=== PATIENT | female | born 1980 ===

== ENCOUNTER 2016-06-07 07:12 | Inpatient (IN) | payer SELFPAY ==
[~2016-06-07] VITALS: Ht 162.6 cm; Wt 68.0 kg
[2016-06-07 09:28] LABS: Urine Bilirubin Negative (Negative); Urine Blood Negative /uL (Negative); Urine Color Yellow (Yellow); Urine Glucose Normal (Normal); Urine Ketone Negative (Negative); Urine Nitrite Negative (Negative); Urine RBC 12 /hpf (0 - 4); Urine Squamous Epithelial Cell MANY /hpf (<5); Urine WBC Clumps PRESENT /hpf (None Seen); Urine pH 6.5 (5.0-8.0)
[2016-06-07 10:34] LABS: Basophils # (auto) 0.2 uL; Basophils % (auto) 2.7 % (0.0-2.0); Eosinophils # (auto) 0.1 uL; Eosinophils % (auto) 1.4 % (0.0-7.0); Hematocrit 41.4 % (36.0-46.0); Hemoglobin 14.4 g/dL (12.2-16.2); Lymphocytes # (auto) 1.7 uL; Mean Corpuscular Hemoglobin 34.5 pg (28.0-32.0); Mean Corpuscular Hgb Conc. 34.9 g/dL (32.0-36.0); Mean Corpuscular Volume 98.8 fL (80.0-100.0); Mean Platelet Volume 7.8 fL (7.4-10.4); Monocytes # (auto) 0.3 uL; Monocytes % (auto) 4.7 % (0.0-12.0); Neutrophils # (auto) 4.7 uL; Neutrophils % (auto) 67.2 % (37.0-80.0); Platelet Count (auto) 309 10^3/uL (140-450); Red Cell Distribution Width 14.1 % (11.6-16.0); White Blood Cell 6.9 10^3/uL (4.4-10.8)
[2016-06-07 10:37] LABS: Albumin 4.1 g/dL (3.4-5.0); BUN/Creatinine Ratio 24.4; Bilirubin, Total 1.3 mg/dL (0.2-1.0); Calcium 9.2 mg/dL (8.5-10.1); Total Protein 8.5 g/dL (6.4-8.2)
[2016-06-07 10:43] LABS: Potassium 2.5 mmol/L (3.5-5.1)
[2016-06-07] MEDS ORDERED: SODIUM CHLORIDE 0.9% 1,000 ML IV ONE (10:49)
[2016-06-07] MEDS ORDERED: D5W/SOD CHL 0.45%/KCL 40MEQ 1,000 ML IV ONE (11:00)
[2016-06-07] MEDS ORDERED: ONDANSETRON HCL 4 MG/2 ML VIAL IV ONE (11:00)
[2016-06-07] MEDS ORDERED: MORPHINE SULF INJ 2 MG/ML SYRINGE 1ML IV ONE (11:00)
[2016-06-07] MEDS ORDERED: cefTRIAXone 1GM/50ML D5W 50 ML IV ONE (12:00)
[2016-06-07 12:02] LABS: INR 1.03 (0.9-1.15); Prothrombin Time 11.1 sec (9.37-12.3)
[2016-06-07] MEDS ORDERED: POTASSIUM CHL 20 Meq TABLET PO ONE ×2 (12:15→19:45)
[2016-06-07] MEDS ORDERED: MORPHINE SULF INJ 2 MG/ML SYRINGE 1ML IV PRN (14:15)
[2016-06-07] MEDS ORDERED: NITROGLYCERIN 0.4 MG SL TAB SL PRN (14:15)
[2016-06-07] MEDS ORDERED: LORazepam 2MG/ML-1ML VIAL IV PRN (14:15)
[2016-06-07] MEDS ORDERED: ONDANSETRON HCL 4 MG/2 ML VIAL IV PRN (14:15)
[2016-06-07] MEDS ORDERED: ACETAMINOPHEN 325 MG TAB PO PRN (14:15)
[2016-06-07] MEDS: MULTIPLE VITAMIN TAB PO SCH (14:55)
[2016-06-07] MEDS: FAMOTIDINE 20 MG TAB PO SCH ×2 (14:55→22:30)
[2016-06-07 17:30] VITALS: BP 96/57
[2016-06-07] MEDS: MORPHINE SULF INJ 2 MG/ML SYRINGE 1ML IV PRN (18:03)
[2016-06-07 19:13] LABS: BUN/Creatinine Ratio 22.4; Calcium 8.5 mg/dL (8.5-10.1)
[2016-06-07 19:20] LABS: Potassium 2.6 mmol/L (3.5-5.1)
[2016-06-07 22:00] VITALS: BP 103/49
[2016-06-07] MEDS: SODIUM CHLOR 0.9% PF (SALINE LOCK) 10ML VIAL IV SCH (22:30)
[2016-06-08 01:03] LABS: BUN/Creatinine Ratio 20.2; Calcium 8.4 mg/dL (8.5-10.1)
[2016-06-08 01:06] LABS: Potassium 2.8 mmol/L (3.5-5.1)
[2016-06-08] MEDS ORDERED: POTASSIUM CHL 20 Meq TABLET PO ONE ×2 (01:15→12:00)
[2016-06-08 05:00] VITALS: BP 118/75
[2016-06-08] MEDS: SODIUM CHLOR 0.9% PF (SALINE LOCK) 10ML VIAL IV SCH ×3 (05:33→22:42)
[2016-06-08 06:17] LABS: Basophils # (auto) 0 uL; Basophils % (auto) 0.7 % (0.0-2.0); Eosinophils # (auto) 0.1 uL; Eosinophils % (auto) 2.7 % (0.0-7.0); Hematocrit 38.7 % (36.0-46.0); Hemoglobin 13.3 g/dL (12.2-16.2); Lymphocytes # (auto) 1.4 uL; Lymphocytes % (auto) 34.4 % (10.0-50.0); Mean Corpuscular Hemoglobin 34.6 pg (28.0-32.0); Mean Corpuscular Hgb Conc. 34.3 g/dL (32.0-36.0); Mean Platelet Volume 7.8 fL (7.4-10.4); Monocytes # (auto) 0.3 uL; Monocytes % (auto) 6.9 % (0.0-12.0); Neutrophils # (auto) 2.3 uL; Neutrophils % (auto) 55.3 % (37.0-80.0); Platelet Count (auto) 318 10^3/uL (140-450); Red Cell Distribution Width 14.6 % (11.6-16.0); White Blood Cell 4.2 10^3/uL (4.4-10.8)
[2016-06-08 06:44] LABS: Albumin 3.2 g/dL (3.4-5.0); BUN/Creatinine Ratio 19.5; Bilirubin, Total 0.7 mg/dL (0.2-1.0); Calcium 8.4 mg/dL (8.5-10.1); Potassium 3.1 mmol/L (3.5-5.1)
[2016-06-08 08:00] VITALS: BP 100/62
[2016-06-08 09:00] VITALS: BP 109/61
[2016-06-08] MEDS: MORPHINE SULF INJ 2 MG/ML SYRINGE 1ML IV PRN ×2 (09:47→14:42)
[2016-06-08] MEDS: DOCUSATE SOD 100 MG CAP PO PRN ×2 (09:47→22:42)
[2016-06-08] MEDS: FAMOTIDINE 20 MG TAB PO SCH ×2 (09:47→22:42)
[2016-06-08] MEDS: MULTIPLE VITAMIN TAB PO SCH (09:47)
[2016-06-08] MEDS: BOOST PLUS 8 ounce PO SCH ×2 (12:00→18:18)
[2016-06-08] MEDS: NYSTATIN (MOUTH-THROAT) 500,000 UNITS/5 ML SUSP MT SCH ×3 (12:49→22:41)
[2016-06-08] MEDS: LORazepam 0.5 MG TAB PO PRN ×2 (12:56→18:54)
[2016-06-08 13:00] VITALS: BP 104/62
[2016-06-08] MEDS ORDERED: cefTRIAXone 1GM/50ML D5W 50 ML IV ONE (14:00)
[2016-06-08 17:00] VITALS: BP 96/56
[2016-06-08 21:30] VITALS: BP 102/58
[2016-06-08] MEDS: TEMAZEPAM 15 MG CAP PO PRN (22:41)
[2016-06-09] VITALS (7 sets, daily range): BP systolic 88–110; BP diastolic 57–73
[2016-06-09] MEDS: NYSTATIN (MOUTH-THROAT) 500,000 UNITS/5 ML SUSP MT SCH ×4 (06:06→22:00)
[2016-06-09] MEDS: SODIUM CHLOR 0.9% PF (SALINE LOCK) 10ML VIAL IV SCH ×3 (06:06→22:27)
[2016-06-09 06:27] LABS: Basophils # (auto) 0 uL; Basophils % (auto) 0.7 % (0.0-2.0); Eosinophils # (auto) 0.1 uL; Eosinophils % (auto) 2.6 % (0.0-7.0); Hematocrit 40.1 % (36.0-46.0); Hemoglobin 13.7 g/dL (12.2-16.2); Lymphocytes # (auto) 1.7 uL; Lymphocytes % (auto) 39.2 % (10.0-50.0); Mean Corpuscular Hemoglobin 34.4 pg (28.0-32.0); Mean Corpuscular Hgb Conc. 34.2 g/dL (32.0-36.0); Mean Corpuscular Volume 100.8 fL (80.0-100.0); Mean Platelet Volume 7.2 fL (7.4-10.4); Monocytes # (auto) 0.4 uL; Monocytes % (auto) 8.4 % (0.0-12.0); Neutrophils # (auto) 2.2 uL; Neutrophils % (auto) 49.1 % (37.0-80.0); Platelet Count (auto) 309 10^3/uL (140-450); Red Cell Distribution Width 14.6 % (11.6-16.0); White Blood Cell 4.5 10^3/uL (4.4-10.8)
[2016-06-09 06:50] LABS: Albumin 3.4 g/dL (3.4-5.0); Calcium 8.7 mg/dL (8.5-10.1); Potassium 3.2 mmol/L (3.5-5.1)
[2016-06-09 06:53] LABS: BUN/Creatinine Ratio 16.9
[2016-06-09 06:55] LABS: Bilirubin, Total 0.5 mg/dL (0.2-1.0); Total Protein 7.3 g/dL (6.4-8.2)
[2016-06-09] MEDS: BOOST PLUS 8 ounce PO SCH ×3 (08:00→18:00)
[2016-06-09] MEDS ORDERED: POTASSIUM CHLORIDE 8 MEQ TAB PO ONE (09:15)
[2016-06-09] MEDS: cefTRIAXone 1GM/50ML D5W 50 ML IV SCH (09:24)
[2016-06-09] MEDS: FAMOTIDINE 20 MG TAB PO SCH ×2 (09:25→22:00)
[2016-06-09] MEDS: POTASSIUM CHL 20 Meq TABLET PO SCH (09:31)
[2016-06-09] MEDS: MULTIPLE VITAMIN TAB PO SCH (09:32)
[2016-06-09] MEDS: DOCUSATE SOD 100 MG CAP PO PRN (09:32)
[2016-06-09] MEDS: LORazepam 0.5 MG TAB PO PRN (18:27)
[2016-06-10] MEDS: LORazepam 0.5 MG TAB PO PRN (01:07)
[2016-06-10 05:35] VITALS: BP 104/64
[2016-06-10] MEDS: SODIUM CHLOR 0.9% PF (SALINE LOCK) 10ML VIAL IV SCH ×3 (06:00→22:35)
[2016-06-10] MEDS: NYSTATIN (MOUTH-THROAT) 500,000 UNITS/5 ML SUSP MT SCH ×4 (06:00→22:35)
[2016-06-10 07:05] LABS: Basophils # (auto) 0 uL; Basophils % (auto) 0.6 % (0.0-2.0); Eosinophils # (auto) 0.2 uL; Eosinophils % (auto) 3.6 % (0.0-7.0); Hemoglobin 14.5 g/dL (12.2-16.2); Lymphocytes # (auto) 1.9 uL; Lymphocytes % (auto) 43.4 % (10.0-50.0); Mean Corpuscular Hemoglobin 34.8 pg (28.0-32.0); Mean Corpuscular Hgb Conc. 34.5 g/dL (32.0-36.0); Mean Corpuscular Volume 100.7 fL (80.0-100.0); Mean Platelet Volume 7.3 fL (7.4-10.4); Monocytes # (auto) 0.3 uL; Monocytes % (auto) 5.9 % (0.0-12.0); Neutrophils # (auto) 2.1 uL; Neutrophils % (auto) 46.5 % (37.0-80.0); Platelet Count (auto) 330 10^3/uL (140-450); Red Cell Distribution Width 14.6 % (11.6-16.0); White Blood Cell 4.4 10^3/uL (4.4-10.8)
[2016-06-10 07:35] LABS: Albumin 3.5 g/dL (3.4-5.0); BUN/Creatinine Ratio 18.8; Bilirubin, Total 0.5 mg/dL (0.2-1.0); Calcium 8.9 mg/dL (8.5-10.1); Potassium 3.3 mmol/L (3.5-5.1); Total Protein 7.8 g/dL (6.4-8.2)
[2016-06-10] MEDS: MORPHINE SULF INJ 2 MG/ML SYRINGE 1ML IV PRN ×2 (07:51→17:44)
[2016-06-10 08:00] VITALS: BP 109/69
[2016-06-10] MEDS: BOOST PLUS 8 ounce PO SCH ×3 (08:00→17:44)
[2016-06-10 09:00] VITALS: BP 109/69
[2016-06-10] MEDS: cefTRIAXone 1GM/50ML D5W 50 ML IV SCH (10:21)
[2016-06-10] MEDS: POTASSIUM CHL 20 Meq TABLET PO SCH (10:22)
[2016-06-10] MEDS: FAMOTIDINE 20 MG TAB PO SCH ×2 (10:22→22:35)
[2016-06-10] MEDS: MULTIPLE VITAMIN TAB PO SCH (10:22)
[2016-06-10 13:00] VITALS: BP 87/51
[2016-06-10 17:00] VITALS: BP 110/69
[2016-06-10] MEDS ORDERED: ALBUTEROL SULF 2.5 MG/0.5ML(0.5%) NEB SOLN NEB ONE (19:15)
[2016-06-10 20:00] VITALS: BP 106/55
[2016-06-10 21:02] LABS: Albumin 3.5 g/dL (3.4-5.0); Bilirubin, Direct 0.2 mg/dL (0-0.2); Bilirubin, Total 0.6 mg/dL (0.2-1.0); Total Protein 7.7 g/dL (6.4-8.2)
[2016-06-10] MEDS: TEMAZEPAM 15 MG CAP PO PRN (22:36)
[2016-06-11 05:00] VITALS: BP 105/62
[2016-06-11] MEDS: SODIUM CHLOR 0.9% PF (SALINE LOCK) 10ML VIAL IV SCH ×3 (06:00→21:31)
[2016-06-11] MEDS: NYSTATIN (MOUTH-THROAT) 500,000 UNITS/5 ML SUSP MT SCH ×4 (06:39→21:31)
[2016-06-11 08:00] VITALS: BP 106/69
[2016-06-11] MEDS: BOOST PLUS 8 ounce PO SCH ×3 (08:00→17:40)
[2016-06-11 09:02] VITALS: BP 106/69
[2016-06-11] MEDS: MORPHINE SULF INJ 2 MG/ML SYRINGE 1ML IV PRN ×3 (10:15→18:25)
[2016-06-11] MEDS: MULTIPLE VITAMIN TAB PO SCH (10:15)
[2016-06-11] MEDS: cefTRIAXone 1GM/50ML D5W 50 ML IV SCH (10:15)
[2016-06-11] MEDS: FAMOTIDINE 20 MG TAB PO SCH ×2 (10:15→21:32)
[2016-06-11] MEDS: POTASSIUM CHL 20 Meq TABLET PO SCH (10:15)
[2016-06-11 14:06] LABS: INR 1.08 (0.9-1.15); Partial Thromboplastin Time 29.8 sec (22.64-33.71); Prothrombin Time 11.7 sec (9.37-12.3)
[2016-06-11] MEDS ORDERED: POTASSIUM CHLORIDE 40 MEQ, LIDOCAINE 1% (LOCAL ANESTH.) 4 ML in SODIUM CHL 0.9% 250 ML IV ONE (15:00)
[2016-06-11 16:49] VITALS: BP 103/66
[2016-06-11 19:30] VITALS: BP 98/69
[2016-06-11] MEDS: LORazepam 0.5 MG TAB PO PRN (21:31)
[2016-06-11 22:00] VITALS: BP 95/59
[2016-06-12] MEDS: SODIUM CHLOR 0.9% PF (SALINE LOCK) 10ML VIAL IV SCH ×3 (04:37→22:01)
[2016-06-12 05:00] VITALS: BP 93/65
[2016-06-12] MEDS: NYSTATIN (MOUTH-THROAT) 500,000 UNITS/5 ML SUSP MT SCH ×4 (05:03→22:01)
[2016-06-12 06:48] LABS: Basophils # (auto) 0 uL; Eosinophils # (auto) 0.1 uL; Eosinophils % (auto) 2.6 % (0.0-7.0); Hematocrit 38.5 % (36.0-46.0); Hemoglobin 13.3 g/dL (12.2-16.2); Lymphocytes # (auto) 1.5 uL; Lymphocytes % (auto) 36.3 % (10.0-50.0); Mean Corpuscular Hemoglobin 34.6 pg (28.0-32.0); Mean Corpuscular Hgb Conc. 34.6 g/dL (32.0-36.0); Mean Platelet Volume 6.6 fL (7.4-10.4); Monocytes # (auto) 0.3 uL; Monocytes % (auto) 7.4 % (0.0-12.0); Neutrophils # (auto) 2.3 uL; Neutrophils % (auto) 52.7 % (37.0-80.0); Platelet Count (auto) 355 10^3/uL (140-450); Red Cell Distribution Width 14.1 % (11.6-16.0); White Blood Cell 4.3 10^3/uL (4.4-10.8)
[2016-06-12 07:08] LABS: BUN/Creatinine Ratio 21.3; Calcium 8.9 mg/dL (8.5-10.1); Potassium 3.4 mmol/L (3.5-5.1)
[2016-06-12 08:00] VITALS: BP 118/63
[2016-06-12] MEDS: BOOST PLUS 8 ounce PO SCH ×3 (08:00→18:00)
[2016-06-12] MEDS ORDERED: ceFAZolin 1GM/50ML D5W 50 ML IV ONE ×2 (08:39→09:45)
[2016-06-12 08:49] LABS: Albumin 3.5 g/dL (3.4-5.0); Bilirubin, Direct 0.1 mg/dL (0-0.2); Bilirubin, Total 0.3 mg/dL (0.2-1.0); Total Protein 7.5 g/dL (6.4-8.2)
[2016-06-12] MEDS ORDERED: LIDOCAINE W/ EPINEPHRINE 1 % INJ 30ML ONE (08:50)
[2016-06-12] MEDS ORDERED: ceFAZolin 1GM VL ONE (08:50)
[2016-06-12] MEDS ORDERED: METHYLERGONOVINE MALEATE 0.2 MG/ML AMP IM ONE (08:51)
[2016-06-12] MEDS ORDERED: BUPIVACAINE 0.25% INJ 50ML VIAL ONE (08:51)
[2016-06-12] MEDS ORDERED: LIDOCAINE HCL (LOCAL ANESTH.) 0.5 % 50ML MDV IJ ONE (08:51)
[2016-06-12] MEDS ORDERED: VASOPRESSIN 20 UNIT/ML ONE (08:51)
[2016-06-12] MEDS ORDERED: MIDAZOLAM HCL 1MG/1ML-2 ML VIAL ONE (09:00)
[2016-06-12] MEDS: cefTRIAXone 1GM/50ML D5W 50 ML IV SCH (09:00)
[2016-06-12] MEDS ORDERED: fentaNYL CITRATE 100 MCG/2 ML VL ONE (09:00)
[2016-06-12] MEDS ORDERED: MEPERIDINE HCL (50 MG/ML) 1 ML VIAL ONE (09:01)
[2016-06-12] MEDS ORDERED: ETOMIDATE (2MG/ML) 20ML VIAL IV ONE ×2 (09:01→09:05)
[2016-06-12] MEDS ORDERED: DEXAMETHASONE SOD PHOS 10MG/1ML VIAL INJ ONE (09:01)
[2016-06-12] MEDS ORDERED: PROPOFOL 10 MG/ML 20 ML IV ONE (09:01)
[2016-06-12] MEDS ORDERED: ACETAMINOPHEN 500 MG TAB PO PRN (09:45)
[2016-06-12] MEDS: SODIUM CHLORIDE 0.9% 1,000 ML IV SCH (09:45)
[2016-06-12] MEDS: MULTIPLE VITAMIN TAB PO SCH (10:00)
[2016-06-12] MEDS: FAMOTIDINE 20 MG TAB PO SCH ×2 (10:00→22:01)
[2016-06-12] MEDS: POTASSIUM CHL 20 Meq TABLET PO SCH (10:00)
[2016-06-12] MEDS ORDERED: SUCCINYLCHOLINE CHLORIDE 20 MG/ML 10ML VIAL IV ONE (10:10)
[2016-06-12] MEDS ORDERED: KETOROLAC TROMETH 30 MG/ML 1ML VIAL IV ONE (11:00)
[2016-06-12] MEDS ORDERED: MIDAZOLAM HCL 1MG/1ML-2 ML VIAL IV PRN (11:00)
[2016-06-12] MEDS ORDERED: LABETALOL HCL 5 MG/ML 4ML SYRINGE IV PRN (11:00)
[2016-06-12] MEDS ORDERED: MORPHINE SULF INJ 2 MG/ML SYRINGE 1ML IV PRN (11:00)
[2016-06-12] MEDS ORDERED: ONDANSETRON HCL 4 MG/2 ML VIAL IV ONE (11:00)
[2016-06-12] MEDS ORDERED: ePHEDrine SULFATE 50 MG/ML AMP IV PRN (11:00)
[2016-06-12] MEDS: HYDROmorphone HCL 2 MG/ML VL IV PRN ×4 (11:14→11:50)
[2016-06-12 13:00] VITALS: BP 112/73
[2016-06-12] MEDS ORDERED: POTASSIUM CHL 10 Meq TABLET PO ONE (13:30)
[2016-06-12] MEDS: MORPHINE SULF INJ 2 MG/ML SYRINGE 1ML IV PRN ×2 (13:37→22:01)
[2016-06-12] MEDS: LORazepam 0.5 MG TAB PO PRN (15:28)
[2016-06-12 17:00] VITALS: BP 120/80
[2016-06-12 21:54] VITALS: BP 109/81
[2016-06-12] MEDS: HYDROcodone-ACET 5/325MG TAB PO PRN (23:24)
[2016-06-13] VITALS (11 sets, daily range): BP systolic 89–116; BP diastolic 48–76
[2016-06-13] MEDS: SODIUM CHLORIDE 0.9% 1,000 ML IV SCH ×2 (00:27→14:21)
[2016-06-13] MEDS: MORPHINE SULF INJ 2 MG/ML SYRINGE 1ML IV PRN ×2 (03:24→17:58)
[2016-06-13 06:07] LABS: Basophils # (auto) 0 uL; Basophils % (auto) 0.2 % (0.0-2.0); DEFINITIVE VIEW TRANSMISSION; Eosinophils # (auto) 0 uL; Lymphocytes # (auto) 1.6 uL; Lymphocytes % (auto) 13.3 % (10.0-50.0); Mean Corpuscular Hgb Conc. 34.4 g/dL (32.0-36.0); Mean Corpuscular Volume 101.7 fL (80.0-100.0); Mean Platelet Volume 7.5 fL (7.4-10.4); Monocytes # (auto) 0.7 uL; Monocytes % (auto) 5.8 % (0.0-12.0); Neutrophils # (auto) 9.9 uL; Neutrophils % (auto) 80.7 % (37.0-80.0); Platelet Count (auto) 403 10^3/uL (140-450); Red Cell Distribution Width 14.2 % (11.6-16.0); White Blood Cell 12.2 10^3/uL (4.4-10.8)
[2016-06-13 06:24] LABS: Hematocrit 27.5 % (36.0-46.0); Hemoglobin 9.4 g/dL (12.2-16.2); Potassium 3.7 mmol/L (3.5-5.1)
[2016-06-13] MEDS: NYSTATIN (MOUTH-THROAT) 500,000 UNITS/5 ML SUSP MT SCH ×4 (06:28→22:39)
[2016-06-13] MEDS: HYDROcodone-ACET 5/325MG TAB PO PRN ×2 (06:28→15:38)
[2016-06-13] MEDS: SODIUM CHLOR 0.9% PF (SALINE LOCK) 10ML VIAL IV SCH ×3 (06:28→22:39)
[2016-06-13 06:38] LABS: Albumin 3.4 g/dL (3.4-5.0); BUN/Creatinine Ratio 20.7; Bilirubin, Total 0.3 mg/dL (0.2-1.0); Calcium 8.7 mg/dL (8.5-10.1)
[2016-06-13] MEDS ORDERED: ALBUMIN 5% 250 ML IV ONE ×2 (06:59→07:15)
[2016-06-13] MEDS: BOOST PLUS 8 ounce PO SCH ×3 (08:00→18:00)
[2016-06-13 08:18] LABS: Hematocrit 24.2 % (36.0-46.0); Hemoglobin 8.4 g/dL (12.2-16.2)
[2016-06-13] MEDS: cefTRIAXone 1GM/50ML D5W 50 ML IV SCH (09:31)
[2016-06-13] MEDS: FAMOTIDINE 20 MG TAB PO SCH ×2 (10:00→21:49)
[2016-06-13] MEDS: MULTIPLE VITAMIN TAB PO SCH (10:00)
[2016-06-13] MEDS: POTASSIUM CHL 20 Meq TABLET PO SCH (10:00)
[2016-06-13] MEDS ORDERED: fentaNYL CITRATE 100 MCG/2 ML VL ONE (11:55)
[2016-06-13] MEDS ORDERED: PROPOFOL 10 MG/ML 20 ML IV ONE (11:56)
[2016-06-13] MEDS ORDERED: SODIUM CHLORIDE LOCK 20 ML ONE (11:56)
[2016-06-13] MEDS ORDERED: ETOMIDATE (2MG/ML) 20ML VIAL IV ONE (11:56)
[2016-06-13] MEDS ORDERED: MEPERIDINE HCL (50 MG/ML) 1 ML VIAL ONE ×2 (11:56→13:08)
[2016-06-13] MEDS ORDERED: MIDAZOLAM HCL 1MG/1ML-2 ML VIAL ONE (11:56)
[2016-06-13] MEDS ORDERED: SODIUM CHLORIDE LOCK 10 ML ONE (11:57)
[2016-06-13 12:24] LABS: INR 1.13 (0.9-1.15); Partial Thromboplastin Time 21.9 sec (22.64-33.71); Prothrombin Time 12.2 sec (9.37-12.3)
[2016-06-13] MEDS ORDERED: LIDOCAINE W/ EPINEPHRINE 1 % INJ 30ML ONE (12:50)
[2016-06-13] MEDS ORDERED: BUPIVACAINE 0.25% INJ 50ML VIAL ONE (12:51)
[2016-06-13] MEDS ORDERED: VASOPRESSIN 20 UNIT/ML ONE (12:51)
[2016-06-13] MEDS ORDERED: GLYCOPYRROLATE 0.2 MG/ML 1ML VIAL ONE (13:20)
[2016-06-13] MEDS ORDERED: NEOSTIGMINE 1 MG/ML INJ (10mg/10ML VIAL) ONE (13:20)
[2016-06-13] MEDS ORDERED: METOCLOPRAMIDE HCL 5MG/ml INJ 2ml VIAL IV ONE (14:30)
[2016-06-13] MEDS ORDERED: HYDROmorphone HCL 2 MG/ML VL IV PRN (14:30)
[2016-06-13 17:47] LABS: Basophils # (auto) 0 uL; Basophils % (auto) 0.5 % (0.0-2.0); DEFINITIVE VIEW TRANSMISSION; Eosinophils # (auto) 0 uL; Hemoglobin 8.4 g/dL (12.2-16.2); Lymphocytes # (auto) 2.1 uL; Lymphocytes % (auto) 24.8 % (10.0-50.0); Mean Corpuscular Hemoglobin 34.2 pg (28.0-32.0); Mean Corpuscular Hgb Conc. 33.6 g/dL (32.0-36.0); Mean Corpuscular Volume 101.8 fL (80.0-100.0); Mean Platelet Volume 7.2 fL (7.4-10.4); Monocytes # (auto) 0.5 uL; Monocytes % (auto) 5.4 % (0.0-12.0); Neutrophils # (auto) 5.8 uL; Neutrophils % (auto) 69.3 % (37.0-80.0); Platelet Count (auto) 224 10^3/uL (140-450); Red Cell Distribution Width 15.5 % (11.6-16.0); White Blood Cell 8.4 10^3/uL (4.4-10.8)
[2016-06-14] VITALS (7 sets, daily range): BP systolic 89–126; BP diastolic 50–78
[2016-06-14] MEDS: MORPHINE SULF INJ 2 MG/ML SYRINGE 1ML IV PRN ×5 (00:02→23:10)
[2016-06-14] MEDS: SODIUM CHLORIDE 0.9% 1,000 ML IV SCH ×2 (05:35→22:15)
[2016-06-14] MEDS: SODIUM CHLOR 0.9% PF (SALINE LOCK) 10ML VIAL IV SCH ×3 (06:36→22:15)
[2016-06-14] MEDS: NYSTATIN (MOUTH-THROAT) 500,000 UNITS/5 ML SUSP MT SCH ×4 (06:36→22:16)
[2016-06-14 06:51] LABS: Basophils # (auto) 0 uL; Basophils % (auto) 0.2 % (0.0-2.0); DEFINITIVE VIEW TRANSMISSION; Eosinophils # (auto) 0 uL; Eosinophils % (auto) 0.4 % (0.0-7.0); Hematocrit 24.1 % (36.0-46.0); Hemoglobin 8.3 g/dL (12.2-16.2); Lymphocytes # (auto) 1.9 uL; Lymphocytes % (auto) 29.3 % (10.0-50.0); Mean Corpuscular Hemoglobin 33.5 pg (28.0-32.0); Mean Corpuscular Hgb Conc. 34.2 g/dL (32.0-36.0); Mean Corpuscular Volume 97.8 fL (80.0-100.0); Mean Platelet Volume 7.7 fL (7.4-10.4); Monocytes # (auto) 0.3 uL; Monocytes % (auto) 5.3 % (0.0-12.0); Neutrophils # (auto) 4.2 uL; Neutrophils % (auto) 64.8 % (37.0-80.0); Platelet Count (auto) 210 10^3/uL (140-450); Red Cell Distribution Width 16.2 % (11.6-16.0); White Blood Cell 6.4 10^3/uL (4.4-10.8)
[2016-06-14 07:01] LABS: Albumin 3.2 g/dL (3.4-5.0); Calcium 8.1 mg/dL (8.5-10.1); Potassium 3.1 mmol/L (3.5-5.1)
[2016-06-14 07:05] LABS: BUN/Creatinine Ratio 17.6; Bilirubin, Total 0.3 mg/dL (0.2-1.0); Total Protein 6.2 g/dL (6.4-8.2)
[2016-06-14] MEDS: BOOST PLUS 8 ounce PO SCH ×3 (08:00→18:03)
[2016-06-14] MEDS: ONDANSETRON HCL 4 MG/2 ML VIAL IV PRN ×3 (08:12→23:10)
[2016-06-14] MEDS: cefTRIAXone 1GM/50ML D5W 50 ML IV SCH (09:20)
[2016-06-14] MEDS: FAMOTIDINE 20 MG TAB PO SCH ×2 (10:15→22:16)
[2016-06-14] MEDS: POTASSIUM CHL 20 Meq TABLET PO SCH ×2 (10:15→22:16)
[2016-06-14] MEDS: MULTIPLE VITAMIN TAB PO SCH (10:15)
[2016-06-15] VITALS (7 sets, daily range): BP systolic 82–110; BP diastolic 45–82
[2016-06-15 06:07] LABS: Basophils # (auto) 0 uL; Basophils % (auto) 0.3 % (0.0-2.0); Eosinophils # (auto) 0 uL; Eosinophils % (auto) 0.8 % (0.0-7.0); Hematocrit 26.9 % (36.0-46.0); Hemoglobin 9.2 g/dL (12.2-16.2); Lymphocytes # (auto) 1.6 uL; Lymphocytes % (auto) 29.5 % (10.0-50.0); Mean Corpuscular Hemoglobin 33.2 pg (28.0-32.0); Mean Corpuscular Hgb Conc. 34.1 g/dL (32.0-36.0); Mean Corpuscular Volume 97.4 fL (80.0-100.0); Mean Platelet Volume 7.5 fL (7.4-10.4); Monocytes # (auto) 0.3 uL; Monocytes % (auto) 6.2 % (0.0-12.0); Neutrophils # (auto) 3.5 uL; Neutrophils % (auto) 63.2 % (37.0-80.0); Platelet Count (auto) 245 10^3/uL (140-450); Red Cell Distribution Width 16.1 % (11.6-16.0); White Blood Cell 5.6 10^3/uL (4.4-10.8)
[2016-06-15] MEDS: NYSTATIN (MOUTH-THROAT) 500,000 UNITS/5 ML SUSP MT SCH ×4 (06:32→21:18)
[2016-06-15] MEDS: SODIUM CHLOR 0.9% PF (SALINE LOCK) 10ML VIAL IV SCH ×3 (06:32→21:17)
[2016-06-15] MEDS: DOCUSATE SOD 100 MG CAP PO PRN (06:33)
[2016-06-15] MEDS: ONDANSETRON HCL 4 MG/2 ML VIAL IV PRN ×4 (06:33→20:10)
[2016-06-15] MEDS: MORPHINE SULF INJ 2 MG/ML SYRINGE 1ML IV PRN ×4 (06:34→20:10)
[2016-06-15 06:42] LABS: BUN/Creatinine Ratio 14.1; Bilirubin, Total 0.3 mg/dL (0.2-1.0); Calcium 8.2 mg/dL (8.5-10.1); Total Protein 6.3 g/dL (6.4-8.2)
[2016-06-15 06:47] LABS: Potassium 2.9 mmol/L (3.5-5.1)
[2016-06-15] MEDS: cefTRIAXone 1GM/50ML D5W 50 ML IV SCH (09:19)
[2016-06-15] MEDS: POTASSIUM CHL 20 Meq TABLET PO SCH (09:20)
[2016-06-15] MEDS: SODIUM CHLORIDE 0.9% 1,000 ML IV SCH ×2 (09:20→21:18)
[2016-06-15] MEDS: BOOST PLUS 8 ounce PO SCH ×3 (09:20→17:58)
[2016-06-15] MEDS: FAMOTIDINE 20 MG TAB PO SCH ×2 (09:20→21:18)
[2016-06-15] MEDS: MULTIPLE VITAMIN TAB PO SCH (09:20)
[2016-06-15] MEDS ORDERED: POTASSIUM CHL 20 Meq TABLET PO ONE (10:45)
[2016-06-15 11:20] LABS: BUN/Creatinine Ratio 14.7; Calcium 8.2 mg/dL (8.5-10.1)
[2016-06-16 05:08] VITALS: BP 106/73
[2016-06-16] MEDS: NYSTATIN (MOUTH-THROAT) 500,000 UNITS/5 ML SUSP MT SCH ×3 (05:11→18:00)
[2016-06-16] MEDS: SODIUM CHLOR 0.9% PF (SALINE LOCK) 10ML VIAL IV SCH ×2 (05:11→14:57)
[2016-06-16 08:00] VITALS: BP 108/64
[2016-06-16] MEDS: FAMOTIDINE 20 MG TAB PO SCH (09:21)
[2016-06-16] MEDS: cefTRIAXone 1GM/50ML D5W 50 ML IV SCH (09:21)
[2016-06-16] MEDS: MULTIPLE VITAMIN TAB PO SCH (09:21)
[2016-06-16] MEDS: MORPHINE SULF INJ 2 MG/ML SYRINGE 1ML IV PRN (09:21)
[2016-06-16] MEDS ORDERED: POTASSIUM CHL 20 Meq TABLET PO ONE (10:00)
[2016-06-16] MEDS: BOOST PLUS 8 ounce PO SCH ×3 (12:00→18:00)
[2016-06-16] MEDS: SODIUM CHLORIDE 0.9% 1,000 ML IV SCH (14:57)
[2016-06-16] MEDS: HYDROcodone-ACET 5/325MG TAB PO PRN (14:58)
[2016-06-16 17:24] VITALS: BP 110/76
== END 2016-06-16 18:22 | disposition home or self-care (01) | DRG 628 ==
LOC: EDBD 07:12 → ER 07:12 → TELE 07:13 → TELE-EAST 17:34
PROVIDERS: ADMIT Internal Medicine; ATTEND Internal Medicine Pulmonary Disease
PROC: 0W9N4ZZ Drainage of Female Perineum, Percutaneous Endoscopic Approach (ICD-10-PCS; 2016-06-12)
PROC: 0UB04ZZ Excision of Right Ovary, Percutaneous Endoscopic Approach (ICD-10-PCS; 2016-06-12)
PROC: 0UNF4ZZ Release Cul-de-sac, Percutaneous Endoscopic Approach (ICD-10-PCS; 2016-06-12)
PROC: 0DNS4ZZ (ICD-10-PCS; 2016-06-12)
PROC: 0UB54ZZ Excision of Right Fallopian Tube, Percutaneous Endoscopic Approach (ICD-10-PCS; principal; 2016-06-12 09:26)
PROC: 30233N1 Transfusion of Nonautologous Red Blood Cells into Peripheral Vein, Percutaneous Approach (ICD-10-PCS; 2016-06-13)
DX: E86.0 Dehydration (principal); K66.1 Hemoperitoneum; I67.4 Hypertensive encephalopathy; N39.0 Urinary tract infection, site not specified; E44.0 Moderate protein-calorie malnutrition; R65.10 Systemic inflammatory response syndrome (SIRS) of non-infectious origin without acute organ dysfunction; N83.201 Unspecified ovarian cyst, right side; R19.00 Intra-abdominal and pelvic swelling, mass and lump, unspecified site; D25.2 Subserosal leiomyoma of uterus; M25.571 Pain in right ankle and joints of right foot; F32.9 Major depressive disorder, single episode, unspecified; D63.8 Anemia in other chronic diseases classified elsewhere; N73.6 Female pelvic peritoneal adhesions (postinfective); R79.89 Other specified abnormal findings of blood chemistry; G40.909 Epilepsy, unspecified, not intractable, without status epilepticus; N18.2 Chronic kidney disease, stage 2 (mild); F19.10 Other psychoactive substance abuse, uncomplicated; B19.20 Unspecified viral hepatitis C without hepatic coma; E87.6 Hypokalemia; F15.10 Other stimulant abuse, uncomplicated; Z68.25 Body mass index [BMI] 25.0-25.9, adult; Z59.0 Homelessness; Z87.891 Personal history of nicotine dependence
CPT/HCPCS: 36415; 70450; 71020; 73610; 74176; 76830; 76856; 80048; 80053; 80074; 80076; 81001; 81025; 82378; 82962; 84132; 84484; 84702; 85014; 85018; 85025; 85610; 85730; 86301; 86304; 86703; 86850; 86900; 86901; 86920; 87086; 87205; 93005; 93306; 93886; 94640; 96361; 96365; 96375; G0434; J0330; J0690; J0696; J1100; J1885; J2001; J2250; J2405; J2704; J3490